=== PATIENT | male | born 1955 | race Caucasian/White ===

== ENCOUNTER 2024-04-03 10:06 | Outpatient (AMB) | payer MEDICARE, SELFPAY ==
[2024-04-03 10:16] VITALS: BP 112/66; PULSE 60; O2SAT 96; BMI 28.5
--- NOTE | 2024-04-03 10:16 | A.OFFPC_ITS ---
Vital Signs 04/03/24 10:16 Height 5 ft 8 in Weight 187 lb 4 oz BMI 28.5 BP 112/66 Blood Pressure Location Rt brachial Position Sitting Pulse 60 Pulse Source Pulse Oximeter Pulse Oximetry (%) 96 Oxygen Delivery Method Room Air Intake Visit Reasons: New Patient/ Est care Intake Note: Pt is here today as a new patient to est care. Allergies latex Allergy (Unknown, Verified 04/03/24 10:27) Unknown Sulfa Allergy (Unknown, Uncoded 04/10/15 00:00) rash Medication List - Last Reconciled 04/03/24 by Carina Guajardo MD No Known Home Meds Tobacco use date assessed: 04/03/24 Fall risk assessment: No Falls in past year Last assessed Fall Risk: 04/03/24 Dental Screening Dental Screen Date: 04/03/24 Did you have a dental visit in the last 12 months?: Yes Did you have a dental problem in the last 6 months where you did not have access to dental care?: No Was dental information given to patient?: Patient has dentist HPI New Patient/ Est care HPI Details 68-year-old male, new to practice, with no medical records for review available, here to establish care/ PE with new PCP. Patient does not take any medications, is a current active smoker, with no desire to quit at present time. Has been diagnosed to have obstructive sleep apnea at [facility], currently being followed there [facility] Medical History (Updated 04/03/24 @ 11:12 by Carina Guajardo MD) Cigarette smoker one half pack a day or less Cigar smoker Obstructive sleep apnea on CPAP History of carpal tunnel syndrome Hyperlipidemia BPH loc w/o ur obs/LUTS Surgical History (Updated 04/03/24 @ 10:47 by Carina Guajardo MD) History of total right hip arthroplasty History of total left hip arthroplasty History of carpal tunnel release of both wrists Family History (Updated 04/03/24 @ 10:48 by Carina Guajardo MD) Mother Lung cancer Sister Breast cancer Social History Housing: Apartment Patient Tobacco Use Status: Current everyday Tobacco user e-Cigarette/Vaping Use: Never Used service: No Current occupational status: retired Cognitive needs: No Hearing needs: No Vision needs: Yes Questionnaire PHQ-9 Over the last 2 weeks, how often have you been bothered by any of the following problems? 1. Little interest or pleasure in doing things: not at all 2. Feeling down, depressed, or hopeless: not at all 3. Trouble falling or staying asleep, or sleeping too much: not at all 4. Feeling tired or having little energy: not at all 5. Poor appetite or overeating: not at all 6. Feeling bad about yourself - or that you are a failure or have let yourself or your family down: not at all 7. Trouble concentrating on things, such as reading the newspaper or watching television: not at all 8. Moving or speaking so slowly that other people could have noticed. Or the opposite - being so fidgety or restless that you have been moving around a lot more than usual: not at all 9. Thoughts that you would be better off or of hurting yourself in some way: not at all Total score: 0 Depression Screening Interpretation: Negative Depression Screening Done: Yes 27934 - PHQ-9 Billing: Yes Source: Developed by Drs. Cabrera Guerrero, Cristina Garcia, Livan Norman and colleagues, with an educational lonnie from [employer]. Thrive Questionnaire Date Thrive assessed: 04/03/24 I am a: Patient What is your living situation today?: I have a steady place to live Within the past 12 months, did the food you bought not last and you didn't have the money to get more?: Never true Within the past 12 months, did you worry whether your food would run out before you got money to buy more?: Never true Do you have trouble paying for medicines?: No Do you have trouble getting transportation to medical appointments?: No Do you have trouble paying your heating and electricity bill?: No Do you have trouble taking care of your child, family member or friend?: No Do you have trouble with day-to-day activities such as bathing, preparing meals, shopping, managing finances, etc.?: No Are you currently unemployed and looking for a job?: No Are you interested in more education?: Yes THRIVE Score: 0 AUDIT C Alcohol Use Questionnaire (AUDIT-C) 1. How often do you have a drink containing alcohol?: Monthly or less 2. How many drinks containing alcohol do you have on a typical day when you are drinking?: 1 or 2 3. How often do you have six or more drinks on one occasion?: Never Total Score: 1 Score Reviewed/Action Taken: Yes RAIMUNDO-7 AMB Questionnaire RAIMUNDO-7 Date RAIMUNDO - 7 assessed: 04/03/24 Feeling nervous, anxious, or on edge: 1 = Several days Not being able to stop or control worryin = Not at all Worrying too much about different things: 1 = Several days Trouble relaxin = Not at all Being so restless that it is hard to sit still: 0 = Not at all Becoming easily annoyed or irritable: 1 = Several days Feeling afraid as if something awful might happen: 0 = Not at all Total RAIMUNDO-7 score (0-4 normal; 5-9 mild; 10-14 moderate; 15-21 severe): 3 Source: Developed by Drs. Cabrera Guerrero, Cristina Garcia, Livan Norman and colleagues, with an educational lonnie from [employer]. RAIMUNDO-7 Assessment Billing RAIMUNDO-7 Assessment Tool: ARIMUNDO-7 Assessment 56871 Review of Systems Const Denies body aches, Denies fatigue, Denies fever(s), Denies headache(s) and Denies weakness Eyes Details: Goes to [facility] Denies change in vision ENT Denies dizziness, Denies headache(s), Denies nasal discharge and Denies sore throat Card Denies chest pain, Denies lightheadedness, Denies palpitations and Denies dyspnea Resp Denies chest congestion, Denies cough, Denies dyspnea and Denies wheezing GI Denies abdominal pain, Denies change in bowel habits and Denies heartburn Denies hematuria, Denies difficulty urinating, Denies dysuria, Denies urinary frequency and Denies urinary urgency Musc Reports arthralgias (Left knee) and Reports stiffness (Left knee) Skin/Breast Denies breast pain, Denies breast mass, Denies lesions and Denies rash Neuro Denies dizziness, Denies headache(s) and Denies weakness Psych Reports as per HPI Endo Denies fatigue, Denies polydipsia, Denies polyuria and Denies palpitations Jamel/Lymph Denies easy bruising Aller/Immun Denies seasonal rhinorrhea and Denies wheezing Physical exam (Primary Care) Vital Signs: Last Vital Signs Pulse 60 04/03/24 10:16 BP 112/66 05/06/24 10:16 Pulse Ox 96 04/03/24 10:16 Oxygen Delivery Method Room Air 04/03/24 10:16 BMI result Body Mass Index 28.5 Tobacco/Smoking Status: Tobacco use Status Tobacco use date assessed 04/03/24 04/03/24 10:20 Patient Tobacco Use Status Current everyday Tobacco 04/03/24 10:20 e-Cigarette/Vaping Use Never Used 04/03/24 10:20 PHQ-9: PHQ-9 Score PHQ-9: Total score 0 04/03/24 15:15 Depression Screening Interpretation: Negative Thrive Assessment: Date of Thrive Assessment Date Thrive assessed 04/03/24 04/03/24 15:15 Const General: comfortable, no acute distress and alert Nutritional Appearance: not obese Orientation/consciousness: patient oriented x3 Limitations: no limitations HENMT Head: Yes normocephalic and Yes atraumatic Ears: external ears normal, TM's normal bilaterally and EAC's normal General nose exam: Normal external nose present and No nasal discharge present Face and sinus: Yes face symmetric Mouth: Normal oral and palatal mucosa present, oropharynx normal and moist mucous membranes Eyes General: appearance normal, both eyes and all related structures Eyelids: Yes eyelids normal Conjunctivae: conjunctivae normal Sclerae: sclerae normal Pupils: Equal, round and reactive pupils present EOM: EOMs intact bilaterally Neck Neck: Yes full ROM, Yes no lymphadenopathy and Yes supple Thyroid: Thyroid normal Resp Effort & Inspection: normal respiratory effort and able to speak in complete sentences Auscultation: clear to auscultation bilaterally Cardio Rate: regular rate Rhythm: regular rhythm Heart sounds: S1 normal heart sound present and S2 normal heart sound present GI Palpation (GI): Soft to palpation, nontender and no masses Auscultation: normal bowel sounds General: Yes no CVA tenderness Male General Exam: No hernia Scrotum: no hydroceles and no inguinal hernias Testes: no testicular mass Back/Spine/Pelvis Back: no CVA tenderness and No back tenderness Skin General skin exam: no rashes or lesions noted Neuro General: patient oriented x3, gait normal, tone normal, moves all extremities, Normal light touch and pain sensation and no focal motor deficits Cranial nerves: Yes CN's II-XII intact bilaterally and Yes Equal, round and reactive pupils present Cognition (Neuro): normal cognition Gait exam (Neuro): Normal gait present Motor exam (neuro): 5/5 motor strength present throughout Extrem General: Yes full ROM, Yes no joint enlargement, Yes no clubbing, cyanosis or edema and Yes no calf tenderness Psych Appearance: grossly normal and well kempt Mental Status: mental status grossly normal Speech and movement: Normal speech and movement present Affect: normal affect Attitude: cooperative Thought process: Normal thought process present Thought content: Normal thought content present, suicidality and no homicidality Insight: Good insight present (Psych) Judgement: Good judgement present (Psych) Immunizations pneumoc 20-diane conj-dip cr(PF) 0.5 mL IM syringe Performing Provider: Carina Guajardo MD Performing Location: [facility] Administered by: Hermilo Neumann CMA on 04/03/24 12:05 Dose Route Admin Location Dispensed Lot Number Expiration Date NDC Quarry Equipment Operator 0.5 mL IM Left Deltoid 0.5 mL [id number] 02/20/25 6349-8851-33 [facility]/CoNarrative VIS Given Date VIS Provided VIS Publication Date 04/03/24 Single Vaccine 22 Eligibility Eligibility Date Funding Source Not [facility] Eligible 04/03/24 Private Assessment and Plan Assessment & Plan (1) Annual visit for general adult medical examination with abnormal findings: Code(s): Z00.01 - Encounter for general adult medical examination with abnormal findings Plan: Will check appropriate labs. Continue regular dental visit every 6 months and regular eye exams, goes to [facility]. Take adequate calcium in diet and vitamin-D 3 at 2000 IU per cap once a day, in addition to weight-bearing exercises to help maintain good muscle tone and weight control. Instructed to do self-testicular exam check for any mass, currently being followed by urology for his elevated PSA levels. Up-to-date with his vaccination, reminded to get his 2nd Shingrix vaccine, Prevnar 20 given today. And reminded to get updated tetanus booster given at the pharmacy. Will get record of last colonoscopy procedure done at [facility], per patient (2) Hyperlipidemia: Code(s): E78.5 - Hyperlipidemia, unspecified Qualifiers: Hyperlipidemia type: unspecified Qualified Code(s): E78.5 - Hyperlipidemia, unspecified Plan: Ordered fasting lipid panel done (3) BPH loc w/o ur obs/LUTS: Code(s): N40.0 - Benign prostatic hyperplasia without lower urinary tract symptoms Plan: Followed by Urology (4) Obstructive sleep apnea on CPAP: Comment: Followed at [facility] sleep lab Code(s): G47.33 - Obstructive sleep apnea (adult) (pediatric) Plan: Followed at [facility] sleep clinic (5) Encounter for screening examination for sexually transmitted infection: Code(s): Z11.3 - Encounter for screening for infections with a predominantly sexual mode of transmission Plan: Ordered HIV antibody/antigen, hepatitis-B surface antibody, hepatitis-C antibody and screening for gonorrhea and chlamydia. (6) Cigarette smoker one half pack a day or less: Code(s): F17.210 - Nicotine dependence, cigarettes, uncomplicated Plan Referred to [facility] lung screening program get low-dose CT scan of chest for further evaluation management. Orders: Orders HIV Ab/Ag 04/04/24 Z11.3 - Encounter for screening for infections with a predominantly sexual mode of transmission, E78.5 - Hyperlipidemia, unspecified, Z00.01 - Encounter for general adult medical examination with abnormal findings Hepatitis B Surface Antibody 04/04/24 Z11.3 - Encounter for screening for infections with a predominantly sexual mode of transmission, E78.5 - Hyperlipidemia, unspecified, Z00.01 - Encounter for general adult medical examination with abnormal findings Alanine Aminotransferase 04/04/24 Z11.3 - Encounter for screening for infections with a predominantly sexual mode of transmission, E78.5 - Hyperlipidemia, unspecified, Z00.01 - Encounter for general adult medical examination with abnormal findings Basic Metabolic Panel Fasting 04/04/24 Z11.3 - Encounter for screening for infections with a predominantly sexual mode of transmission, E78.5 - Hyperlipidemia, unspecified, Z00.01 - Encounter for general adult medical examination with abnormal findings Vitamin D 25-OH Total 04/04/24 Z11.3 - Encounter for screening for infections with a predominantly sexual mode of transmission, E78.5 - Hyperlipidemia, unspecified, Z00.01 - Encounter for general adult medical examination with abnormal findings CT NG by PCR 04/03/24 Z11.3 - Encounter for screening for infections with a predominantly sexual mode of transmission, E78.5 - Hyperlipidemia, unspecified, Z00.01 - Encounter for general adult medical examination with abnormal findings Hepatitis C Antibody 04/04/24 Z11.3 - Encounter for screening for infections with a predominantly sexual mode of transmission, E78.5 - Hyperlipidemia, unspecified, Z00.01 - Encounter for general adult medical examination with abnormal findings Lipid Panel 04/04/24 Z11.3 - Encounter for screening for infections with a predominantly sexual mode of transmission, E78.5 - Hyperlipidemia, unspecified, Z00.01 - Encounter for general adult medical examination with abnormal findings Aspartate Amino Transferase 04/04/24 Z11.3 - Encounter for screening for infections with a predominantly sexual mode of transmission, E78.5 - Hyperlipidemia, unspecified, Z00.01 - Encounter for general adult medical examination with abnormal findings Hemoglobin and Hematocrit 04/04/24 Z11.3 - Encounter for screening for infections with a predominantly sexual mode of transmission, E78.5 - Hyperlipidemia, unspecified, Z00.01 - Encounter for general adult medical examination with abnormal findings Pneumococcal 20 Immunization 04/03/24 Z23 - Encounter for immunization Referrals Thoracic/General Surgery Referral F17.290 - Nicotine dependence, other tobacco product, uncomplicated Coding Level of Care Code New Pt Prev Care >65yr (46938) Diagnoses Annual visit for general adult medical examination with abnormal findings Z00.01 Hyperlipidemia, unspecified hyperlipidemia type E78.5 Hyperlipidemia type: unspecified BPH loc w/o ur obs/LUTS N40.0 Obstructive sleep apnea on CPAP G47.33 Encounter for screening examination for sexually transmitted infection Z11.3 Cigarette smoker one half pack a day or less F17.210 Additional Codes RAIMUNDO-7 Assessment Billing - RAIMUNDO-7 Assessment Tool: RAIMUNDO-7 Assessment 74894 ([id number])
== END 2024-04-03 11:18 | disposition home or self-care (01) ==
PROVIDERS: PCP Internal Medicine; Visit Provider Internal Medicine
DX: Z00.00 Encounter for general adult medical examination without abnormal findings (principal); E78.5 Hyperlipidemia, unspecified; N40.0 Benign prostatic hyperplasia without lower urinary tract symptoms; G47.33 Obstructive sleep apnea (adult) (pediatric); Z11.3 Encounter for screening for infections with a predominantly sexual mode of transmission; F17.210 Nicotine dependence, cigarettes, uncomplicated
CPT/HCPCS: 90471; 90677; 99387

== ENCOUNTER 2024-04-03 11:28 | Outpatient (REF) | payer MEDICARE, SELFPAY ==
[2024-04-04 11:53] LABS: CT PCR NOT DETECTED (Not Detect.); NG PCR NOT DETECTED (Not Detect.)
== END 2024-04-03 11:29 | disposition home or self-care (01) ==
LOC: HO.HMGCLDS 11:28
PROVIDERS: PCP Internal Medicine; Visit Provider Internal Medicine
DX: Z11.3 Encounter for screening for infections with a predominantly sexual mode of transmission (principal); Z00.01 Encounter for general adult medical examination with abnormal findings; E78.5 Hyperlipidemia, unspecified
CPT/HCPCS: 0353U

== ENCOUNTER 2024-04-04 10:15 | Outpatient (REF) | payer MEDICARE, SELFPAY ==
[2024-04-04 13:36] LABS: Hematocrit 42.7 % (42.0-52.0); Hemoglobin 14.7 g/dl (14.0-18.0)
[2024-04-04 14:06] LABS: Alanine Aminotransferase 15 U/L (0-40); Anion Gap 12 (12-20); Aspartate Amino Transferase 19 U/L (5-37); Blood Urea Nitrogen 14 mg/dL (9-16); Calcium 9.4 mg/dL (8.4-10.2); Carbon Dioxide 22 mmol/L (22-29); Chloride 112 mmol/L (96-108); Cholesterol 204 mg/dL (<200); Estimated Glomerular Filt Rate > 60; Glucose Fasting 96 mg/dL (60-99); HDL Cholesterol 45 mg/dL (>40); LDL Cholesterol Calculated 143 mg/dL (<100); Potassium 4.1 mmol/L (3.3-5.1); Sodium 142 mmol/L (135-145); Triglycerides 82 mg/dL (<150)
[2024-04-04 14:14] LABS: Vitamin D 25-OH Total 44.2 ng/mL (>30)
[2024-04-05 04:06] LABS: HBS Num1 0.72 mIU/mL (0-7.99); HIV AB/AG Nonreactive (Nonreactive); HIV Num 1 0.05 S/CO (0.00-0.99); ~HepC Num1 0.22 S/CO (0.00-0.79); ~Hepatitis B Surface Antibody NONREACTIVE (Nonreactive); ~Hepatitis C Antibody Nonreactive (Nonreactive)
== END 2024-04-04 10:16 | disposition home or self-care (01) ==
LOC: HO.HMGCLDS 10:15
PROVIDERS: PCP Internal Medicine; Visit Provider Internal Medicine
DX: Z00.01 Encounter for general adult medical examination with abnormal findings (principal); Z11.3 Encounter for screening for infections with a predominantly sexual mode of transmission; Z11.4 Encounter for screening for human immunodeficiency virus [HIV]; E78.5 Hyperlipidemia, unspecified
CPT/HCPCS: 36415; 80048; 80061; 82306; 84450; 84460; 85014; 85018; 86706; 86803; 87389

== ENCOUNTER 2025-01-30 14:34 | Outpatient (REF) | payer MEDICARE, SELFPAY ==
[2025-01-30 17:10] LABS: Prostate Specific Antigen 5.71 ng/mL (<0.05-4.0)
--- OUTSIDE RECORDS SUMMARY | 2025-01-30 18:26 | XMS_ITS | Encounter Summary ---
Author Organization [facility] Address [address] [place] [address] Care Team Providers Care Soda Fountain Operator Name Role Phone Tanya Arce MD Primary Care Provider [phone] Encounter Details Date Type Department Care Team (Late st Contact Info) Description 11/09/2024 Lab Requisition [facility] - Main Lab [address] [facility] [place] [address] Samuel Sexton PA [address] [facility] [address] [place] [phone] Other microscopic hematuria Social History Tobacco Use Types Packs/Day Years Used Date Smoking Tobacco: Every Day Smokeless Tobacco: Never Sex and Gender Information Value Date Recorded Sex Assigned at Not on file Legal Sex Male 11:03 AM EST Gender Identity Not on file Sexual Orientation Not on file documented as of this encounter Plan of Treatment Not on file documented as of this encounter Procedures Procedure Name Priority Date/Time Associated Diagnosis Comments AP OUTSIDE CONSULT Routine 11/07/2024 12 :00 AM EST Other microscopic hematuria documented in this encounter Results * Anatomic pathology outside consult (11/07/2024 12:00 AM EST) Final Diagnosis Urine, Voided: Negative for high grade urothelial carcinoma. 12/01/2024 4:50 PM EST [facility] Clinical Information [id number] Urine cytology w/reflex Urovysion. 12/01/2024 4:50 PM EST [facility] Gross Description A. Urine, Voided, : [id number] recd 1 tp slide. 12/01/2024 4:50 PM EST [facility] Disclaimer Unless otherwise specified, all tissue is 10% NB formalin fixed and paraffin embedded. Technical pathology services provided by [facility] at [address], [place] [address] (CLIA #[id number]/S jonathan Abbott MD, Contracting Officer) 12/01/2024 4:50 PM EST [facility] Tissue Urine specimen from urethra / Unknown 11/07/2024 11/09/2024 10:26 AM EST us [facility] PATHOLOGY ORDERAB LES Final Result [facility] [address] [place] [address], documented in this encounter Visit Diagnoses Diagnosis Other microscopic hematuria documented in this encounter Care Teams Soda Fountain Operator Relationship Specialty Start Date End Date Tanya Arce MD [address] [place] [phone] PCP - General Family Medicine 02/24/17 documented as of this encounter
--- OUTSIDE RECORDS SUMMARY | 2025-01-30 18:27 | XMS_ITS | Clinical Summary ---
Author Organization [address] Address [address] [place] [phone] Phone Care Team Providers Care Zipper Machine Operator Name Role Phone Tanya Arce MD Primary Care Provider [phone] Encounters Date Type Department Care Team Description 11/09/[address] [facility] - Main Lab [address] [facility] [place] [address] Samuel Sexton PA Other microscopic hematuria from Last 3 Months Surgical History Surgery Date Site/Laterality Comments CARPAL TUNNEL RELEASE PROCEDURE: HISTORICAL CARPAL TUNNEL REL Social History Tobacco Use Types Packs/Day Years Used Date Smoking Tobacco: Every Day Smokeless Tobacco: Never Sex and Gender Information Value Date Recorded Sex Assigned at Not on file Legal Sex Male 11:03 AM EST Gender Identity Not on file Sexual Orientation Not on file Obstetrics History Plan of Treatment Health Maintenance Due Date Last Done Comments DTaP,Tdap,and Td Vaccines (1 - Tdap) 1973 Pneumococcal Vaccine: 50+ Ye ars (1 of 2 - PCV) 1973 Zoster Vaccines (1 of 2) 2004 COVID-19 Vaccine ( - 2023-2 5 season) 2024 Influenza Vaccine (#1) 2024 Abdominal Aortic Aneurysm (A AA) Screen 12/23/2024 Cholesterol Screening (Lipid Panel) 12/23/2024 Colorectal Cancer Screening: Colonoscopy 12/23/2024 Depression Screening 12/23/2024 Falls Risk Assessment 12/23/2024 Hepatitis C Screening 12/23/2024 Medicare Annual Wellness Visit 12/23/2024 Social Influencers of Health Screening 12/23/2024 RSV Immunization Patients 60 + Years Old (1 - 1-dose 75+ series) 2029 HIB Vaccines Aged Out No longer eligi ble based on patient's age to complete this topic HPV Vaccines Aged Out No longer eligi ble based on patient's age to complete this topic Hepatitis A Vaccines Aged Out No long er eligible based on patient's age to complete this topic Hepatitis B Vaccines Aged Out No long er eligible based on patient's age to complete this topic IPV Vaccines Aged Out No longer eligi ble based on patient's age to complete this topic MMR Vaccines Aged Out No longer eligi ble based on patient's age to complete this topic Meningococcal ACWY Vaccine Aged Out N o longer eligible based on patient's age to complete this topic Meningococcal B Vacine Aged Out No lo nger eligible based on patient's age to complete this topic RSV Immunization Patients Un jenise 20 months Aged Out No longer eligible b ased on patient's age to complete this topic Varicella Vaccines Aged Out No longer eligible based on patient's age to complete this topic Procedures Procedure Name Priority Date/Time Associated Diagnosis Comments AP OUTSIDE CONSULT Routine 11/07/2024 12 :00 AM EST Other microscopic hematuria from Last 3 Months Results * Anatomic pathology outside consult (11/07/2024 12:00 AM EST) Final Diagnosis Urine, Voided: Negative for high grade urothelial carcinoma. 12/01/2024 4:50 PM EST [facility] Clinical Information [id number] Urine cytology w/reflex Urovysion. 12/01/2024 4:50 PM EST [facility] Gross Description A. Urine, Voided, : [id number] recd 1 tp slide. 12/01/2024 4:50 PM EST [facility] Disclaimer Unless otherwise specified, all tissue is 10% NB formalin fixed and paraffin embedded. Technical pathology services provided by [facility] at [address] [place] [address] [address], [place] [address] (CLIA #[id number]/S jonathan Abbott MD, Forensic Document Examiner) 12/01/2024 4:50 PM EST [facility] Tissue Urine specimen from urethra / Unknown 11/07/2024 11/09/2024 10:26 AM EST [facility] PATHOLOGY ORDERAB LES Final Result [facility] [address] [place] [address], from Last 3 Months Insurance [employer] [place] MEDICARE ADVANTAGE Care Teams Zipper Machine Operator Relationship Specialty Start Date End Date Tanya Arce MD [address] [place] [phone] PCP - General Family Medicine 02/24/17
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
== END 2025-01-30 14:35 | disposition home or self-care (01) ==
LOC: HO.HMGCLDS 14:34
PROVIDERS: PCP Internal Medicine; Visit Provider Urology
DX: C61 Malignant neoplasm of prostate (principal); Z12.5 Encounter for screening for malignant neoplasm of prostate
CPT/HCPCS: 36415; 84153

== ENCOUNTER 2025-06-04 14:48 | Outpatient (REF) | payer MEDICARE, SELFPAY ==
--- OUTSIDE RECORDS SUMMARY | 2025-06-04 15:20 | XMS_ITS | Encounter Summary ---
Author Organization [facility] Address [address] [place] [address] Care Team Providers Care Panel Builder Name Role Phone Tanya Arce MD Primary Care Provider [phone] Encounter Details Date Type Department Care Team (Late st Contact Info) Description 11/09/2024 Lab Requisition [facility] - Main Lab [address] [facility] [place] [address] Samuel Sexton PA [address] [facility] [address] [place] [phone] Other microscopic hematuria Social History Tobacco Use [...] grade urothelial carcinoma. 12/01/2024 4:50 PM EST [facility] ([facility]) [facility] Clinical Information [id number] Urine cytology w/reflex Urovysion. 12/01/2024 4:50 PM EST [facility] Gross Description A. Urine, Voided, : [id number] recd 1 tp slide. 12/01/2024 4:50 PM EST [facility] Disclaimer Unless otherwise specified, all tissue is 10% NB formalin fixed and paraffin embedded. Technical pathology services provided by [facility] at [address] [facility] [address], [place] [address] (CLIA #[id number]/S jonathan Abbott MD, Dynamometer Tuner) 12/01/2024 4:50 PM EST [facility] Tissue Urine specimen from urethra / Unknown 11/07/2024 11/09/2024 10:26 AM EST us [facility] PATHOLOGY ORDERAB LES Final Result [facility] [address] [place] [address], documented in this encounter Visit Diagnoses Diagnosis Other microscopic hematuria documented in this encounter Care Teams Panel Builder Relationship Specialty Start Date End Date Tanya Arce MD [address] [place] [phone] PCP - General Family Medicine 02/24/17 documented as of this encounter
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
[2025-06-04 17:26] LABS: Prostate Specific Antigen 6.39 ng/mL (<0.05-4.0)
== END 2025-06-04 14:49 | disposition home or self-care (01) ==
LOC: HO.HMGCLDS 14:48
PROVIDERS: PCP Internal Medicine; Visit Provider Physician Assistant
DX: C61 Malignant neoplasm of prostate (principal); Z12.5 Encounter for screening for malignant neoplasm of prostate
CPT/HCPCS: 36415; 84153

== ENCOUNTER 2025-06-27 13:37 | Outpatient (AMB) | payer MEDICARE, SELFPAY ==
[2025-06-27 13:41] VITALS: BP 116/76; PULSE 80; O2SAT 97; BMI 29.5
--- NOTE | 2025-06-27 13:41 | MHC.PC.OV ---
Vital Signs 06/27/25 13:41 Height 5 ft 8 in Weight 194 lb BMI 29.5 BP 116/76 Blood Pressure Location Lt brachial Position Sitting Pulse 80 Pulse Source Pulse Oximeter Pulse Oximetry (%) 97 Intake Visit Reasons: PE Fish Flipper Required: No Accompanied by: Self / Same As Patient Allergies latex Allergy (Unknown, Verified 06/27/25 13:50) Unknown Sulfa Allergy (Unknown, Uncoded 06/27/25 13:50) rash Medication List - Last Reconciled 06/27/25 by Carina Guajardo MD finasteride 5 mg PO DAILY [uromend 1 cap PO .qd] Tobacco use date assessed: 06/27/25 Fall risk assessment: No Falls in past year Last assessed Fall Risk: 06/27/25 Dental Screening Dental Screen Date: 06/27/25 Did you have a dental visit in the last 12 months?: Yes Did you have a dental problem in the last 6 months where you did not have access to dental care?: No Was dental information given to patient?: Patient has dentist HPI PE HPI Details - The patient is a 69-year-old male presenting for a physical exam - Benign Prostatic Hyperplasia: The patient has a history of benign prostatic hyperplasia, with symptoms including intermittent and restricted urine stream. He is currently on finasteride, which has improved his urine stream but has led to a reduced amount of ejaculate and diminished sex drive. Diffuse currently followed by Urology - Left Hip Revision Surgery: The patient underwent a left hip revision surgery performed by Dr. Casillas at [facility] through [facility].He reports a successful outcome with no complications. - Cataracts: The patient has been diagnosed with cataracts, but surgery is not yet indicated as they are not severe enough. - Hyperlipidemia: The patient has a history of hyperlipidemia, with previous cholesterol levels being high. He is advised to work on his diet and exercise to manage his cholesterol levels. - Vitamin D Deficiency: The patient is advised to monitor his vitamin D levels as they tend to decline with age, especially with limited sun exposure. - Leg Cramps: The patient experiences severe leg cramps, which last about 10 minutes and are relieved by taking salt and water. He has been advised to try magnesium supplements or muscle rubs to alleviate the cramps. - Sleep Apnea: The patient uses a CPAP machine for sleep apnea. - He reports feeling congested at times and uses Flonase to clear his nasal passages before sleep. - Hypertension: The patient has a history of hypertension and is advised to monitor his blood pressure regularly. - Colon Cancer Screening: The patient recently completed a Cologuard test and is awaiting results. If negative, he will require another screening in three years. -current cigarette smoker, with no desire to quit at present time [facility] Medical History History of prostate cancer Osteoarthritis, hip, bilateral Cigarette smoker one half pack a day or less Cigar smoker Obstructive sleep apnea on CPAP History of carpal tunnel syndrome Hyperlipidemia BPH loc w/o ur obs/LUTS Surgical History History of total right hip arthroplasty History of total left hip arthroplasty History of carpal tunnel release of both wrists Family History Mother Lung cancer Sister Breast cancer Social History Housing: Apartment Patient Tobacco Use Status: Current everyday Tobacco user e-Cigarette/Vaping Use: Never Used service: No Current occupational status: retired Cognitive needs: No Hearing needs: No Vision needs: Yes Questionnaire PHQ-9 Over the last 2 weeks, how often have you been bothered by any of the following problems? 1. Little interest or pleasure in doing things: not at all 2. Feeling down, depressed, or hopeless: not at all 3. Trouble falling or staying asleep, or sleeping too much: several days 4. Feeling tired or having little energy: several days 5. Poor appetite or overeating: several days 6. Feeling bad about yourself - or that you are a failure or have let yourself or your family down: not at all 7. Trouble concentrating on things, such as reading the newspaper or watching television: several days 8. Moving or speaking so slowly that other people could have noticed. Or the opposite - being so fidgety or restless that you have been moving around a lot more than usual: not at all 9. Thoughts that you would be better off or of hurting yourself in some way: not at all Total score: 4 Depression Screening Interpretation: Negative Depression Screening Done: Yes 16408 - PHQ-9 Billing: Yes Source: Developed by Drs. Cabrera Guerrero, Cristina Garcia, Livan Norman and colleagues, with an educational lonnie from [employer] Thrive Questionnaire Date Thrive assessed: 06/27/25 I am a: Patient What is your living situation today?: I have a steady place to live Within the past 12 months, did the food you bought not last and you didn't have the money to get more?: Never true Within the past 12 months, did you worry whether your food would run out before you got money to buy more?: Never true Do you have trouble paying for medicines?: No Do you have trouble getting transportation to medical appointments?: No Do you have trouble paying your heating and electricity bill?: No Do you have trouble taking care of your child, family member or friend?: No Do you have trouble with day-to-day activities such as bathing, preparing meals, shopping, managing finances, etc.?: No Are you currently unemployed and looking for a job?: No Are you interested in more education?: Yes Please select the resources that you would like help with: None Currently or been in a relationship where the following occur: No concerns reported THRIVE Score: 0 AUDIT C Alcohol Use Questionnaire (AUDIT-C) 1. How often do you have a drink containing alcohol?: Monthly or less 2. How many drinks containing alcohol do you have on a typical day when you are drinking?: 1 or 2 3. How often do you have six or more drinks on one occasion?: Less than monthly Total Score: 2 Score Reviewed/Action Taken: Yes RAIMUNDO-7 AMB Questionnaire RAIMUNDO-7 Date RAIMUNDO - 7 assessed: 06/27/25 Feeling nervous, anxious, or on edge: 1 = Several days Not being able to stop or control worryin = Not at all Worrying too much about different things: 1 = Several days Trouble relaxin = Several days Being so restless that it is hard to sit still: 0 = Not at all Becoming easily annoyed or irritable: 1 = Several days Feeling afraid as if something awful might happen: 1 = Several days Total RAIMUNDO-7 score (0-4 normal; 5-9 mild; 10-14 moderate; 15-21 severe): 5 Source: Developed by Drs. Cabrera Guerrero, Cristina Garcia, Livan Norman and colleagues, with an educational lonnie from [employer] RAIMUNDO-7 Assessment Billing RAIMUNDO-7 Assessment Tool: RAIMUNDO-7 Assessment 10252 Review of Systems Const Denies headache(s) Eyes Details: [facility] Denies change in vision ENT Denies dizziness, Denies headache(s), Denies nasal discharge and Denies sore throat Card Denies chest pain, Denies lightheadedness, Denies palpitations and Denies dyspnea Resp Denies chest congestion, Denies cough, Denies dyspnea and Denies wheezing GI Denies abdominal pain, Denies change in bowel habits and Denies heartburn Denies hematuria, Denies difficulty urinating and Denies dysuria Musc Reports arthralgias (Left knee) and Reports stiffness (Left knee) Skin/Breast Denies rash Neuro Denies dizziness and Denies headache(s) Psych Reports no additional complaints Endo Denies polydipsia, Denies polyuria and Denies palpitations Jamel/Lymph Denies easy bruising Aller/Immun Reports seasonal rhinorrhea and Denies wheezing Physical exam (Primary Care) Vital Signs: Last Vital Signs Pulse 80 06/27/25 13:41 BP 116/76 06/27/25 13:41 Pulse Ox 97 06/27/25 13:41 BMI result Body Mass Index 29.5 Tobacco/Smoking Status: Tobacco use Status Tobacco use date assessed 06/27/25 06/27/25 13:45 Patient Tobacco Use Status Current everyday Tobacco 06/27/25 13:45 e-Cigarette/Vaping Use Never Used 06/27/25 13:45 PHQ-9: PHQ-9 Score PHQ-9: Total score 4 07/01/25 23:08 Depression Screening Interpretation: Negative Thrive Assessment: Date of Thrive Assessment Date Thrive assessed 06/27/25 06/27/25 13:45 Currently or been in a relationship where the following occur: No concerns reported Const General: no acute distress and alert Orientation/consciousness: patient oriented x3 HENMT Head: Yes normocephalic Ears: external ears normal, TM's normal bilaterally and EAC's normal General nose exam: Normal external nose present Face and sinus: Yes face symmetric Mouth: oropharynx normal and moist mucous membranes Eyes General: appearance normal, both eyes and all related structures Neck Neck: Yes full ROM, Yes no lymphadenopathy and Yes supple Thyroid: Thyroid normal Resp Effort & Inspection: normal respiratory effort and able to speak in complete sentences Auscultation: clear to auscultation bilaterally Cardio Rate: regular rate Rhythm: regular rhythm Heart sounds: S1 normal heart sound present and S2 normal heart sound present GI Palpation (GI): Soft to palpation, nontender and no masses Auscultation: normal bowel sounds General: Yes no CVA tenderness Back/Spine/Pelvis Back: no CVA tenderness and No back tenderness Skin General skin exam: no rashes or lesions noted Neuro General: patient oriented x3, gait normal, tone normal, moves all extremities and no focal motor deficits Cognition (Neuro): normal cognition Gait exam (Neuro): Normal gait present Motor exam (neuro): 5/5 motor strength present throughout Extrem General: Yes full ROM, Yes no joint enlargement, Yes no clubbing, cyanosis or edema and Yes no calf tenderness Psych Appearance: grossly normal and well kempt Mental Status: mental status grossly normal Speech and movement: Normal speech and movement present Affect: normal affect Coding Level of Care Code Est Pt Prev Care >65y(36538) Diagnoses Annual visit for general adult medical examination with abnormal findings Z00. BPH loc w/o ur obs/LUTS N40.0 Hyperlipidemia, unspecified hyperlipidemia type E78.5 Hyperlipidemia type: unspecified Obstructive sleep apnea on CPAP G47.33 Additional Codes RAIMUNDO-7 Assessment Billing - RAIMUNDO-7 Assessment Tool: RAIMUNDO-7 Assessment 07166 ([id number]) PHQ-9 - 01230 - PHQ-9 Billing: Yes ([id number]) Assessment & Plan Assessment & Plan (1) Annual visit for general adult medical examination with abnormal findings: Code(s): Z00. - Encounter for general adult medical examination with abnormal findings Plan: Will check appropriate labs. Recommended dental visit every 6 months and regular eye exams, at least every 2 years, goes to [facility].. Take adequate calcium in diet and vitamin-D 3 at 2000 IU per cap once a day, in addition to weight-bearing exercises to help maintain good muscle tone and weight control. Instructed to do self-testicular exam check for any mass. Did Cologuard test with results still pending. Up-to-date with his vaccinations (2) BPH loc w/o ur obs/LUTS: Code(s): N40.0 - Benign prostatic hyperplasia without lower urinary tract symptoms Category: Medical Plan: Currently followed by [facility] on finasteride also takes Uromend supplements (3) Hyperlipidemia: Code(s): E78.5 - Hyperlipidemia, unspecified Category: Medical Qualifiers: Hyperlipidemia type: unspecified Qualified Code(s): E78.5 - Hyperlipidemia, unspecified Plan: Fasting lipid panel ordered today. Reinforced importance of following a healthy diet and getting regular exercise at least 100 50 minutes of moderate intensity exercise every week (4) Obstructive sleep apnea on CPAP: Comment: Followed at [facility] sleep lab Code(s): G47.33 - Obstructive sleep apnea (adult) (pediatric) Category: Medical Plan: Currently using CPAP, followed at [facility] sleep clinic Orders: Orders Lipid Panel 06/27/25 E78.5 - Hyperlipidemia, unspecified, G47.33 - Obstructive sleep apnea (adult) (pediatric), N40.0 - Benign prostatic hyperplasia without lower urinary tract symptoms, Z13.1 - Encounter for screening for diabetes mellitus Basic Metabolic Panel Fasting 06/27/25 E78.5 - Hyperlipidemia, unspecified, G47.33 - Obstructive sleep apnea (adult) (pediatric), N40.0 - Benign prostatic hyperplasia without lower urinary tract symptoms, Z13.1 - Encounter for screening for diabetes mellitus Vitamin D 25-OH Total 06/27/25 E78.5 - Hyperlipidemia, unspecified, G47.33 - Obstructive sleep apnea (adult) (pediatric), N40.0 - Benign prostatic hyperplasia without lower urinary tract symptoms, Z13.1 - Encounter for screening for diabetes mellitus
--- OUTSIDE RECORDS SUMMARY | 2025-06-27 14:15 | XMS_ITS | Clinical Summary ---
Author Organization [facility] Address [address] [facility] [address] [place] [address] Phone Care Team Providers Care Softball Coach Name Role Phone Carina Guajardo MD Primary Care Provider Allergies Active Allergy Reactions Criticality Noted Date Comments Latex 06/17/2023 Sulfa (Sulfonamide Antibiotics) Unknown 09/29 Medications No known medications Active Problems No known active problems Social History Tobacco Use Types Packs/Day Years Used Date Smoking Tobacco: Never Smokeless Tobacco: Never Tobacco Cessation:Counseling Given: Not Answered Education Answer Date Recorded Are you interested in more education? Not on juventino e 03/25/2023 Are you concerned about learning? Not on file 03/25/2023 No 03/25/2023 No 03/25/2023 Digital Access Answer Date Recorded No 04/26/2023 No 04/26/2023 Reliable internet access at home? Not on file 04/26/2023 Device with a working camera? Not on file Sex and Gender Information Value Date Recorded Sex Assigned at Not on file Legal Sex Male 7:05 PM EST Gender Identity Not on file Sexual Orientation Not on file Last Filed Vital Signs Vital Sign Reading Time Taken Comments Blood Pressure 110/61 06/17/2023 1:03 PM EDT Pulse - - Temperature 36.6 C (97.9 F) 06/17/2023 1:03 PM EDT Respiratory Rate - - Oxygen Saturation - - Inhaled Oxygen Concentration - - Weight 83.1 kg (183 lb 3.2 oz) 06/17/2023 1:03 P M EDT Height 170.2 cm (5' 7 ) 06/17/2023 1:03 PM EDT Body Mass Index 28.69 06/17/2023 1:03 PM EDT Plan of Treatment Health Maintenance Due Date Last Done Comments Adult Td,Tdap Booster 1955 LIPID PANEL 1954 DEPRESSION SCREENING 1966 HEPATITIS C SCREENING 1972 COLOGUARD 1999 COLONOSCOPY 1999 COLORECTAL CANCER SCREENING 1999 FIT TEST 1999 FOBT 1999 SIGMOIDOSCOPY 1999 VIRTUAL COLONOSCOPY 1999 ZOSTER VACCINES (2 of 3) 10/24/2014 08/29/2014 PNEUMOCOCCAL VACCINES (50+ years) (2 of 2 - PCV) 11/07/2021 11/07/2020 COVID-19 VACCINE (4 - 2023-2 5 season) 2024 06/17/2022, 11/08/2021, 03/06/2021 RSV VACCINE (1 - 1-dose 75+ series) 2029 SMOKING STATUS SCREENING (On ce After 26 Yrs) Completed 06/17/2023 HEPATITIS A VACCINES Aged Out No long er eligible based on patient's age to complete this topic HIB VACCINES Aged Out No longer eligi ble based on patient's age to complete this topic MENINGOCOCCAL VACCINES (ACWY) Aged Out No longer eligible based on patient's age to complete this topic MENINGOCOCCAL VACCINES (B) Aged Out N o longer eligible based on patient's age to complete this topic Medical Devices Not on file Insurance [place] P[place] BLUE REPLACEMENT MEDICARE PPO BLUE REPLACEMENT MEDICARE PPO BLUE REPLACEMENT MEDICARE PPO BLUE REPLACEMENT [facility] MEDICARE PPO BLUE REPLAC[place] Care Teams Softball Coach Relationship Specialty Start Date End Date Carina Guajardo MD [address] [place] [address] PCP - General Internal Medicine 04/06/25 Additional Source Comments The information contained in this document represents components of the legal health record. It is not the complete legal health record.[facility]
--- OUTSIDE RECORDS SUMMARY | 2025-06-27 14:15 | XMS_ITS | Encounter Summary ---
Author Organization [facility] Address [address] [place] [address] Care Team Providers Care Integration Assistant Name Role Phone Tanya Arce MD Primary Care Provider [phone] Encounter Details Date Type Department Care Team (Late st Contact Info) Description 11/09/2024 Lab Requisition [facility] - Main Lab [address] [facility] [place] [address] Samuel Sexton PA [address] [facility] [address] [place] [phone] Other microscopic hematuria Social History Tobacco Use [...] grade urothelial carcinoma. 12/01/2024 4:50 PM EST [facility] ([facility]) [facility] Clinical Information [id number] Urine cytology w/reflex Urovysion. 12/01/2024 4:50 PM EST [facility] Gross Description A. Urine, Voided, : [id number] recd 1 tp slide. 12/01/2024 4:50 PM EST [facility] Disclaimer Unless otherwise specified, all tissue is 10% NB formalin fixed and paraffin embedded. Technical pathology services provided by [facility] [address] [place] [address] (CLIA #[id number]/S jonathan Abbott MD, Post Hole Digger) 12/01/2024 4:50 PM EST [facility] Tissue Urine specimen from urethra / Unknown 11/07/2024 11/09/2024 10:26 AM EST us [facility] PATHOLOGY ORDERAB LES Final Result [facility] [address] [place] [address], documented in this encounter Visit Diagnoses Diagnosis Other microscopic hematuria documented in this encounter Care Teams Integration Assistant Relationship Specialty Start Date End Date Tanya Arce MD [address] [place] [phone] PCP - General Family Medicine 02/24/17 documented as of this encounter
== END 2025-06-27 14:37 | disposition home or self-care (01) ==
LOC: HO.HMCC 13:38
PROVIDERS: PCP Internal Medicine; Visit Provider Internal Medicine
DX: Z00.01 Encounter for general adult medical examination with abnormal findings (principal); N40.0 Benign prostatic hyperplasia without lower urinary tract symptoms; E78.5 Hyperlipidemia, unspecified; G47.33 Obstructive sleep apnea (adult) (pediatric)

== ENCOUNTER → 2025-06-27 13:37 | Outpatient (BNVA) | payer MEDICARE, SELFPAY | PROVIDERS: PCP Internal Medicine; Visit Provider Internal Medicine | DX: Z00.01 Encounter for general adult medical examination with abnormal findings (principal); N40.0 Benign prostatic hyperplasia without lower urinary tract symptoms; E78.5 Hyperlipidemia, unspecified; G47.33 Obstructive sleep apnea (adult) (pediatric); Z99.89 Dependence on other enabling machines and devices; Z13.31 Encounter for screening for depression; Z13.39 Encounter for screening examination for other mental health and behavioral disorders | CPT/HCPCS: 96127; 99397 ==

== ENCOUNTER 2025-07-13 08:37 | Outpatient (REF) | payer MEDICARE, SELFPAY ==
--- OUTSIDE RECORDS SUMMARY | 2025-07-13 08:52 | XMS_ITS | Clinical Summary ---
Author Organization [facility] Address [address] [employer] [facility] [address] [place] [address] Phone Care Team Providers Care Christian Ministries Professor Name Role Phone Carina Guajardo MD Primary [...] PPO BLUE REPLACEMENT MEDICARE PPO BLUE REPLACEMENT [facility] MEDICARE PPO BLUE REPLACEMENT [place] Care Teams Christian Ministries Professor Relationship Specialty Start Date End Date Carina Guajardo MD [address] [facility] [place] [address] PCP - General Internal Medicine 04/06/25 Additional Source Comments The information contained in this document represents components of the legal health record. It is not the complete legal health record.[facility]
--- OUTSIDE RECORDS SUMMARY | 2025-07-13 08:52 | XMS_ITS | Encounter Summary ---
Author Organization [facility] Address [address] [place] [address] Care Team Providers Care Hair Blender Name Role Phone Tanya Arce MD Primary Care Provider [phone] Encounter Details Date Type Department Care Team (Late st Contact Info) Description 11/09/2024 Lab Requisition [facility] - Main Lab [address] [facility] [place] [address] Samuel Sexton PA [address] [facility] [address] [place] [phone] Other microscopic hematuria Social History Tobacco Use [...] grade urothelial carcinoma. 12/01/2024 4:50 PM EST [facility] Clinical Information [id number] Urine cytology w/reflex Urovysion. 12/01/2024 4:50 PM EST [facility] Gross Description A. Urine, Voided, : [id number] recd 1 tp slide. 12/01/2024 4:50 PM EST [facility] Disclaimer Unless otherwise specified, all tissue is 10% NB formalin fixed and paraffin embedded. Technical pathology services provided by [facility] [address] [facility] [address] [place] [address] (CLIA #[id number]/S jonathan Abbott MD, Medical Assisting Instructor) 12/01/2024 4:50 PM EST [facility] Tissue Urine specimen from urethra / Unknown 11/07/2024 11/09/2024 10:26 AM EST us [facility] PATHOLOGY ORDERAB LES Final Result [facility] [address] [place] [address], documented in this encounter Visit Diagnoses Diagnosis Other microscopic hematuria documented in this encounter Care Teams Hair Blender Relationship Specialty Start Date End Date Tanya Arce MD [address] [place] [phone] PCP - General Family Medicine 02/24/17 documented as of this encounter
[2025-07-13 10:56] LABS: Anion Gap 13 (12-20); Blood Urea Nitrogen 15 mg/dL (9-16); Calcium 8.7 mg/dL (8.4-10.2); Carbon Dioxide 21 mmol/L (22-29); Chloride 111 mmol/L (96-108); Cholesterol 205 mg/dL (<200); Estimated Glomerular Filt Rate > 60; HDL Cholesterol 48 mg/dL (>40); Potassium 4.0 mmol/L (3.3-5.1); Sodium 141 mmol/L (135-145); Triglycerides 80 mg/dL (<150)
[2025-07-13 11:15] LABS: Prostate Specific Antigen 5.19 ng/mL (<0.05-4.0)
== END 2025-07-13 08:38 | disposition home or self-care (01) ==
LOC: HO.HMGCLDS 08:37
PROVIDERS: PCP Internal Medicine; Referring Provider Urology; Visit Provider Internal Medicine
DX: Z12.5 Encounter for screening for malignant neoplasm of prostate (principal); Z13.1 Encounter for screening for diabetes mellitus; N40.1 Benign prostatic hyperplasia with lower urinary tract symptoms; G47.33 Obstructive sleep apnea (adult) (pediatric); E78.5 Hyperlipidemia, unspecified
CPT/HCPCS: 36415; 80048; 80061; 82306; 84153

== ENCOUNTER → 2025-08-23 10:53 | Outpatient (BNVA) | payer MEDICARE, SELFPAY | PROVIDERS: PCP Internal Medicine | DX: Z71.3 Dietary counseling and surveillance (principal); E78.00 Pure hypercholesterolemia, unspecified | CPT/HCPCS: 99211 ==

== ENCOUNTER 2025-10-29 13:51 | Outpatient (REF) | payer MEDICARE, SELFPAY ==
--- OUTSIDE RECORDS SUMMARY | 2025-10-29 17:20 | XMS_ITS | Clinical Summary ---
Author Organization [facility] Address [address] [facility] [address] [place] [address] Phone Care Team Providers Care Senior Software Tester Name Role Phone Carina Guajardo MD Primary [...] you interested in more education? Not on juevntino e 03/25/2023 Are you concerned about learning? [...] (2 of 2 - PCV) 11/07/2021 11/07/2020 INFLUENZA VACCINE (#1) 2025 , 08/22/2021, 08/15/2020, Additional history exists COVID-19 VACCINE (2024- season) 2025 06/17/2022, 11/08/2021, 03/06/2021 RSV VACCINE (1 - 1-dose 75+ series) 2029 SMOKING STATUS SCREENING (Once After 26 Yrs) Completed 06/17/2023 HEPATITIS A VACCINES Aged Out No long er eligible based on patient's age to complete this topic HIB VACCINES Aged Out No longer eligi ble based on patient's age to complete this topic IPV VACCINES Aged Out No longer eligi ble based on patient's age to complete this topic MENINGOCOCCAL VACCINES (ACWY) Aged Out No longer eligible based on patient's age to complete this topic MENINGOCOCCAL VACCINES (B) Aged Out N o longer eligible based on patient's age to complete this topic Medical Devices Not on file Insurance [address] [place] [address] [place] MEDICARE P[place] BLUE REPLACEMENT * Guarantor: Eduardo Covarrubias Account Type Relation to Patient Date of Phone Billing Address Personal/Family Self 1955 [address] [facility] [address] [place] [address] MEDICARE PPO BLUE REPLAC[place] BL[place] Care Teams Senior Software Tester Relationship Specialty Start Date End Date Carina Guajardo MD [address] [facility] [address] PCP - General Internal Medicine 04/06/25 Additional Source Comments The information contained in this document represents components of the legal health record. It is not the complete legal health record.[facility]
[2025-10-29 17:44] LABS: CT PCR Urine NOT DETECTED (Not Detect.); NG PCR Urine NOT DETECTED (Not Detect.)
[2025-10-30 08:17] LABS: HBS Num1 1.71 mIU/mL (0-7.99); HBc Num1 0.07 S/CO (0.00-0.79); HBsAGNum1 0.45 S/CO (0.00-0.99); HIV Num 1 0.07 S/CO (0.00-0.99); Hepatitis B Surface Antigen Negative (Negative); ~HepC Num1 0.22 S/CO (0.00-0.79); ~Hepatitis B Surface Antibody NONREACTIVE (Nonreactive); ~Hepatitis C Antibody Nonreactive (Nonreactive)
== END 2025-10-29 13:52 | disposition home or self-care (01) ==
LOC: HO.HMGCLDS 13:51
PROVIDERS: PCP Internal Medicine; Visit Provider Internal Medicine
DX: Z11.4 Encounter for screening for human immunodeficiency virus [HIV] (principal); Z20.2 Contact with and (suspected) exposure to infections with a predominantly sexual mode of transmission
CPT/HCPCS: 86704; 86706; 86803; 87340; 87389; 87491; 87591

== ENCOUNTER 2025-11-13 10:54 | Outpatient (AMB) | payer MEDICARE, SELFPAY ==
--- NOTE | 2025-11-13 11:04 | A.OFFVIS_ITS ---
VS Expanded 11/13/25 11:05 Height 5 ft 8 in Weight 184 lb 4.5 oz BMI 28.0 Intake Visit Reasons: Hyperlipidemia, unspecified Allergies Sulfa (Sulfonamide Antibiotics) Allergy (Mild, Verified 07/13/25 08:54) Rash latex Allergy (Unknown, Verified 07/13/25 08:54) Unknown Nutrition Presentation Details: Pt presents for MNT for high cholesterol Pt reports working on dietary modifications and feels very comfortable with modifications thus far, Pt reports he is monitoring weight at home and has had 7 lbs wt loss in 6-7 weeks time. He reports working on reducing starches and reducing on sugars. food frequency water: 32 oz of water 4 x/d fish: 0 wk fruits: 3/d vegetables:daily dairy: 4/d (working on reducing frequency of higher sugar dairy options -ice cream Pt reports meals are typically fast meals -not cooking from scratch, reading food labels, choosing higher protein/lower carb options and reports awareness with sodium mushroom coffee and apple banana with peanut butter lunch: pea soup or beef soup with vegetables eating out 3-4 x, choosing veg, reducing on bread and keeping protein , water snacks: popcorn/ice cream BS Monitoring Most Recent Diabetes Results: Cholesterol, (<200) 205 mg/dL H 07/13/25 HDL Cholesterol, (>40) 48 mg/dL 07/13/25 Triglycerides, (<150) 80 mg/dL 07/13/25 Creatinine, (0.5-1.4) 0.84 mg/dL 07/13/25 BUN, (9-16) 15 mg/dL 07/13/25 Sodium, (135-145) 141 mmol/L 07/13/25 Potassium, (3.3-5.1) 4.0 mmol/L 07/13/25 Chloride, (96-108) 111 mmol/L H 07/13/25 Carbon Dioxide, (22-29) 21 mmol/L L 07/13/25 Calcium, (8.4-10.2) 8.7 mg/dL Δ 07/13/25 AST, (5-37) 19 U/L 04/04/24 ALT, (0-40) 15 U/L 04/04/24 RZG-Ffgbjyi-Ak.Jeor Equation Height: 5 ft 8 in Weight: 184 lb Resting Metabolic Rate: 1568.96 Calculated Activity Level: Mild Activity Calories Needed to Maintain Weight: 2157.32 Diagnosis Nutrition problem #1: altered nutrition labs As related to (etiology) #1: excess energy intake As evidenced by (sign/symptom) #1: abnormal lab values [facility] Medical History (Updated 08/29/25 @ 01:16 by Carina Guajardo MD) Bradycardia Bee sting allergy History of prostate cancer Osteoarthritis, hip, bilateral Cigarette smoker one half pack a day or less Cigar smoker Obstructive sleep apnea on CPAP History of carpal tunnel syndrome Hyperlipidemia BPH loc w/o ur obs/LUTS Surgical History History of total right hip arthroplasty History of total left hip arthroplasty History of carpal tunnel release of both wrists Family History Mother Lung cancer Sister Breast cancer Social History (Updated 08/28/25 @ 11:09 by Celestina Flowers RN) Household Members: None Housing: House Are you a primary care program director to a significant other at home: No Do you presently have visiting nurse or other home services: No Patient Tobacco Use Status: Current everyday Tobacco user Tobacco use type: Cigarette and Cigar e-Cigarette/Vaping Use: Never Used Substance Use Type: Marijuana service: No Current occupational status: retired Gender identity: Male Cognitive needs: No Hearing needs: No Vision needs: Yes Assessment & Plan Assessment & Plan (1) Hyperlipidemia: Code(s): E78.5 - Hyperlipidemia, unspecified Category: Medical Qualifiers: Hyperlipidemia type: unspecified Qualified Code(s): E78.5 - Hyperlipidemia, unspecified Plan: current wt: 84 kg ( 11/22 ) est kcal needs as per MSJ: 8368-2989 est protein needs as per 1 g/kg BW: 80 est fluid needs as per 30 ml/kg BW: 2500 Recommended fiber > 12 g /day and gradually increase up to 25-28 g /day or as tolerated Nutrition topics discussed : Reviewed (R), Pt verbalized understanding (V) , not applicable (N/A) R,V : Healthy Plate Method Concept: R, V, : Carbohydrates: food sources of carbohydrates, relationship of carbohydrates to blood glucose, fatty liver GI health. Recommended total amount of carbohydrates per meals and snack. Differences between simple carbohydrates and complex carbohydrates R, V,: Lean protein foods including vegan , vegetarian sources of protein. Benefits of protein (including but not limited to healing, nutritional value , benefits in weight loss, glucose control R,: Fats : Source of fats, benefits of fats. Difference between saturated and unsaturated fats. Saturated fats and its contribution to inflammation R, : Fiber: food sources and role of fiber in the diet (including but not limited to its role as a prebiotic, benefits in constipation, role in IBS , role in glucose control and cholesterol level) R, V, : Hydration: role of hydration and prevention of dehydration or over hydration. Foods and water content. R, V, N/A: Vitamins and Minerals in foods and supplements R, V, N/A: Interpreting food labels, including serving size, macronutrients, vitamins, minerals, allergens, ingredient list , % daily value Patient Instructions: Continue working on following healthy plate method Include omega 3 fatty acids and fiber rich foods ( fish at least twice/week, flaxseed milled up to 3 tbsp a day ) keep physically active Coding Level of Care Code Nutr Indiv Intake (17467) Diagnoses Hyperlipidemia, unspecified hyperlipidemia type E78.5 Hyperlipidemia type: unspecified Time Spent (min) 30
[2025-11-13 11:05] VITALS: BMI 28.0
--- OUTSIDE RECORDS SUMMARY | 2025-11-13 14:13 | XMS_ITS | Clinical Summary ---
Author Organization [address] Address [address] [place] [phone] Phone Care Team Providers Care Drag Out Worker Name Role Phone Tanya Arce MD Primary Care Provider [phone] Surgical History Surgery Date Site/Laterality Comments CARPAL TUNNEL RELEASE PROCEDURE: HISTORICAL CARPAL TUNNEL REL Social History Tobacco Use Types Packs/Day Years Used Date Smoking Tobacco: Every Day Smokeless Tobacco: Never Sex and Gender Information Value Date Recorded Sex Assigned at Not on file Legal Sex Male 11:03 AM EST Gender Identity Not on file Sexual Orientation Not on file Plan of Treatment Health Maintenance Due Date Last Done Comments Colorectal Cancer Screening: Colonoscopy 1955 DTaP,Tdap,and Td Vaccines (1 - Tdap) 1973 Pneumococcal Vaccine: 50+ Ye ars (1 of 2 - PCV) 1973 Zoster Vaccines (1 of 2) 2004 Depression Screening 11/29/2024 Abdominal Aortic Aneurysm (A AA) Screen 12/23/2024 Cholesterol Screening (Lipid Panel) 12/23/2024 Falls Risk Assessment 12/23/2024 Hepatitis C Screening 12/23/2024 Medicare Annual Wellness Visit 12/23/2024 Social Influencers of Health Screening 12/23/2024 COVID-19 Vaccine ( - 2024-2 6 season) 2025 Influenza Vaccine (#1) 2025 RSV Immunization Adult Patie nts (1 - 1-dose 75+ series) 2029 HIB [...] age to complete this topic Meningococcal B Vaccine Aged Out No l onger eligible based on patient's age to complete this topic RSV Immunization Patients Un jenise 20 months Aged Out No longer eligible b ased on patient's age to complete this topic Varicella Vaccines Aged Out No longer eligible based on patient's age to complete this topic Insurance [address] [place] [address] BLUE [place]OSS [place] MEDICARE ADVANTAGE Care Teams Drag Out Worker Relationship Specialty Start Date End Date Tanya Arce MD [address] [place] [address] [place] [phone] PCP - General Family Medicine 02/24/17
--- OUTSIDE RECORDS SUMMARY | 2025-11-13 14:13 | XMS_ITS | Encounter Summary ---
Author Organization [facility] Address [address] [place] [address] Care Team Providers Care Data Lead Name Role Phone Tanya Arce MD Primary Care Provider [phone] Encounter Details Date Type Department Care Team (Late st Contact Info) Description 11/09/2024 Lab Requisition [facility] - Main Lab [address] [facility] [place] [address] Samuel Sexton PA [address] [facility] 120 [place] [phone] Other microscopic hematuria Social History Tobacco Use [...] grade urothelial carcinoma. 12/01/2024 4:50 PM EST [facility]) [facility] at 1650 EST Clinical Information [id number] Urine cytology w/reflex Urovysion. 12/01/2024 4:[address] [facility] Gross Description A. Urine, Voided, : [id number] recd 1 tp slide. 12/01/2024 4:[address] [facility] Disclaimer Unless otherwise specified, all tissue is 10% NB formalin fixed and paraffin embedded. Technical pathology services provided by [facility] at [address] [place] [address] (CLIA #[id number]/S jonathan Abbott MD, Neon Sign Maker) 12/01/2024 4:[address] [facility] Tissue Urine specimen from urethra / Unknown 11/07/2024 11/09/2024 10:26 AM EST [facility] PATHOLOGY ORDERAB LES Final Result [facility] [address] [place] [address], documented in this encounter Visit Diagnoses Diagnosis Other microscopic hematuria documented in this encounter Care Teams Data Lead Relationship Specialty Start Date End Date Tanya Arce MD [address] [place] [phone] PCP - General Family Medicine 02/24/17 documented as of this encounter
--- OUTSIDE RECORDS SUMMARY | 2025-11-13 14:13 | XMS_ITS | Clinical Summary ---
Author Organization [facility] Address [address] [email or web address] [facility] [address] [place] [address] Phone Care Team Providers Care Key Filer Name Role Phone Carina Guajardo MD Primary [...] Devices Not on file Insurance [address] [place] [address] [place] MEDICARE P[place] BLUE REPLACEMENT Member Subscriber Plan / Payer (Ef fective 2019-Present) Name:Eduardo Covarrubias Relation to Subscriber:Self Name:Eduardo Covarrubias Payer ID:[id number] (NAIC) Type:Medicare Address: [address] [place], [place] [facility] MEDICARE PPO BLUE REPLACEMENT Member Subscriber Plan / Payer ( fective 2019-Present) Name:Eduardo Covarrubias Relation to Subscriber:Self Name:Eduardo Covarrubias Payer ID:[id number] ([facility]) Type:Medicare Address: [address] [place], [place] [facility] MEDICARE PPO BLUE REPLACEMENT Member Subscriber Plan / Payer ( fective 2019-Present) Name:Eduardo Covarrubias Relation to Subscriber:Self Name:Eduardo Covarrubias Payer ID:[id number] ([facility]) Type:Medicare Address: [address] [place], [place] Care Teams Key Filer Relationship Specialty Start Date End Date Carina Guajardo MD [address] [facility] [address] PCP - General Internal Medicine 04/06/25 Additional Source Comments The information contained in this document represents components of the legal health record. It is not the complete legal health record.[facility]
[2025-11-13 14:26] VITALS: BMI 28.0
== END 2025-11-13 12:13 | disposition home or self-care (01) ==
LOC: HO.ENCR 10:55
PROVIDERS: PCP Internal Medicine; Visit Provider Dietitian, Registered
DX: E78.5 Hyperlipidemia, unspecified (principal)

== ENCOUNTER → 2025-11-13 10:54 | Outpatient (BNVA) | payer MEDICARE, SELFPAY | PROVIDERS: PCP Internal Medicine; Visit Provider Dietitian, Registered | DX: E78.5 Hyperlipidemia, unspecified (principal); Z71.3 Dietary counseling and surveillance | CPT/HCPCS: 97802 ==

== ENCOUNTER 2025-11-15 12:34 | Outpatient (REF) | payer MEDICARE, SELFPAY ==
--- NOTE | ~2025-11-15 | MM_ITS ---
EXAMINATION: DXA BONE DENSITY AXIAL HISTORY: Z13.820 - Encounter for screening for osteoporosis TECHNIQUE: ProPerforma Dual energy absorptiometry (DEXA) of the lumbar spine and distal radius was performed. The hips were not evaluated due to a history of prior bilateral total hip arthroplasty. COMPARISON: There are no prior studies for comparison. FINDINGS: The bone mineral density of the lumbar spine is 1.365 g/cm2, corresponding to a T-score of 1.0, and a Z-score of 1.4. This is indicative of normal bone mineral density. The bone mineral density of the distal is 0.968 g/cm2, corresponding to a T-score of -0.2, and a Z-score of 0.6. This is indicative of normal bone mineral density. MM/XR DEXA axial skeleton IMPRESSION: Based on bone mineral density, and according to World Health Organization (WHO) criteria, the diagnosis is consistent with normal bone mineral density. Statistically, 68% of repeat scans fall within 1 SD (+/- 0.010 g/cm2 for AP spine L1-L4) and 1 SD (+/- 0.012 g/cm2 for femur total) [employer] is a trademark of the [employer] [place] [facility] [employer], a World Health Organization (WHO) Collaborating Center. Electronically signed by: Cabrera Cordova MD 11/15/2025 01:41 PM [facility]
--- OUTSIDE RECORDS SUMMARY | 2025-11-15 16:24 | XMS_ITS | Encounter Summary ---
Author Organization [facility] Address [address] [place] [address] Care Team Providers Care Contract Associate Manager Name Role Phone Tanya Arce MD Primary Care Provider [phone] Encounter Details Date Type Department Care Team (Late st Contact Info) Description 11/09/2024 Lab Requisition [facility] - Main Lab [address] [facility] [place] [address] Samuel Sexton PA [address] [facility] 120 [place] [phone] Other microscopic hematuria Social History Tobacco Use [...] carcinoma. 12/01/2024 4:50 PM EST [facility] ([facility]) [facility] at 1650 EST Clinical Information [id number] Urine cytology w/reflex Urovysion. 12/01/2024 4:50 PM EST [facility] Gross Description A. Urine, Voided, : [id number] recd 1 tp slide. 12/01/2024 4:50 PM EST [facility] Disclaimer Unless otherwise specified, all tissue is 10% NB formalin fixed and paraffin embedded. Technical pathology services provided by [facility] at [address], [place] [address] (CLIA #[id number]/S jonathan Abbott MD, Rattling Machine Tender) 12/01/2024 4:50 PM EST [facility] Tissue Urine specimen from urethra / Unknown 11/07/2024 11/09/2024 10:26 AM EST [facility] PATHOLOGY ORDERAB LES Final Result [facility] [address] [place] [address], documented in this encounter Visit Diagnoses Diagnosis Other microscopic hematuria documented in this encounter Care Teams Contract Associate Manager Relationship Specialty Start Date End Date Tanya Arce MD [address] [place] [phone] PCP - General Family Medicine 02/24/17 documented as of this encounter
--- OUTSIDE RECORDS SUMMARY | 2025-11-15 16:24 | XMS_ITS | Clinical Summary ---
Author Organization [facility] Address [address] [place] [place] [facility] [address] [place] [address] Phone Care Team Providers Care Ornamental Machine Operator Name Role Phone Carina Guajardo MD Primary [...] Covarrubias Payer ID:[id number] (NAIC) Type:Medicare Address: [address] [place], [place] [facility] MEDICARE PPO BLUE REPLACEMENT Member Subscriber Plan / Payer ( fective 2019-Present) Name:Eduardo Covarrubias Relation to Subscriber:Self Name:Eduardo Covarrubias Payer ID:[id number] ([facility]) Type:Medicare Address: [address] [place], [place] [facility] MEDICARE PPO BLUE REPLACEMENT Member Subscriber Plan / Payer ( fective 2019-Present) Name:Eduardo Covarrubias Relation to Subscriber:Self Name:Eduardo Covarrubias Payer ID:[id number] ([facility]) Type:Medicare Address: [address] [place], [place] Care Teams Ornamental Machine Operator Relationship Specialty Start Date End Date Carina Guajardo MD [address] [place] [address] PCP - General Internal Medicine 04/06/25 Additional Source Comments The information contained in this document represents components of the legal health record. It is not the complete legal health record.[facility]
--- OUTSIDE RECORDS SUMMARY | 2025-11-15 16:24 | XMS_ITS | Clinical Summary ---
Author Organization [address] Address [address] [place] [phone] Phone Care Team Providers Care Aurist Name Role Phone Tanya Arce MD Primary Care Provider [phone] Surgical History Surgery Date Site/Laterality Comments CARPAL [...] complete this topic Insurance dr [address] [place] [address] [employer] - [place] MEDICARE ADVANTAGE Care Teams Aurist Relationship Specialty Start Date End Date Tanya Arce MD [address] [place] [address] [place] [id number] PCP - General Family Medicine 02/24/17
== END 2025-11-15 12:35 | disposition home or self-care (01) ==
LOC: HO.MAMMO 12:34
PROVIDERS: PCP Internal Medicine; Visit Provider Internal Medicine
DX: G47.33 Obstructive sleep apnea (adult) (pediatric) (principal); M16.0 Bilateral primary osteoarthritis of hip; N40.0 Benign prostatic hyperplasia without lower urinary tract symptoms; F17.210 Nicotine dependence, cigarettes, uncomplicated; Z13.820 Encounter for screening for osteoporosis; Z72.3 Lack of physical exercise; Z85.46 Personal history of malignant neoplasm of prostate; Z99.89 Dependence on other enabling machines and devices
CPT/HCPCS: 77080

== ENCOUNTER → 2025-11-15 13:00 | Outpatient (BNV) | payer MEDICARE, SELFPAY | PROVIDERS: PCP Internal Medicine; Visit Provider Radiology Diagnostic Radiology | DX: Z13.820 Encounter for screening for osteoporosis (principal) | CPT/HCPCS: 77080 ==